=== PATIENT | female | born 1990 | race Caucasian/White ===

== ENCOUNTER 2017-07-03 08:21 | Day surgery (SDC) | payer BC ==
[2017-07-03 09:23] LABS: Hematocrit 46.4 % (37.0-47.0); Hemoglobin 15.8 gm/dL (12.5-16.0); Mean Cell Volume 86.6 fl (78-100); Mean Corpuscular Hemoglobin 29.5 pg (27-31); Mean Corpuscular Hgb Conc 34.1 g/dl (32-36); Mean Platelet Volume 9.4 fl (6.0-9.5); Neutrophil # 6.8 K/mm3 (1.3-6.0); Neutrophil % 76.4 % (42-75.0); Platelet Count 233 K/mm3 (150-450); Red Blood Count 5.36 M/mm3 (4.2-5.4); Red Cell Distribution Width 12.6 % (11.5-14.0); White Blood Count 8.9 K/mm3 (4.0-10.5)
[2017-07-03 09:24] LABS: Urine Bilirubin Negative (NEGATIVE); Urine Blood Negative /ul (NEGATIVE); Urine Ketone Negative (NEGATIVE); Urine Nitrite Negative (NEGATIVE); Urine Protein Negative (NEGATIVE); Urine Urobilinogen Normal (NORMAL)
[2017-07-03 09:34] LABS: Urine Appearance Slightly Cloudy; Urine Bacteria 2+; Urine Color Dark Yellow; Urine RBC 0-5 /hpf (0-5); Urine WBC 0-5 /hpf (0-5)
[2017-07-03] MEDS ORDERED: DIATRIZOATE MEGLUMINE, SODIUM 30 ML BTL PO ONE (09:42)
[2017-07-03] MEDS ORDERED: DIATRIZOATE MEGLUMINE, SODIUM 30 ML BTL ONE (09:44)
[2017-07-03 09:47] LABS: Albumin * 3.8 gm/dl (3.4-5.0); Anion Gap 12.9 mmol/L (6.8-13.8); BUN/Creatinine Ratio 13.6 (9.0-21.6); Bilirubin, Total 0.7 mg/dL (0.0-1.1); Ca. Corrected For Albumin 8.6 mg/dL (8.4-10.2); Calcium * 8.8 mg/dL (7.9-10.9); Carbon Dioxide 27.9 mmol/L (24-32.6); Potassium 3.8 mmol/L (3.4-4.6); Total Protein 8.2 gm/dL (6.2-8.2)
[2017-07-03] MEDS ORDERED: ONDANSETRON HCL/PF 2 MG/ML VIAL IV ONE (10:13)
[2017-07-03] MEDS ORDERED: NORMAL SALINE 1,000 ML IV ONE ×2 (10:13→11:25)
[2017-07-03] MEDS ORDERED: ONDANSETRON HCL/PF 2 MG/ML VIAL ONE (10:16)
--- NOTE | 2017-07-03 13:10 | ERNOTE ---
Abdominal HPI - General Chief Complaint: Abdominal Pain Time Seen by Provider: 07/03/17 08:44 Source: patient, family Exam Limitations: no limitations - Immun/Allergies/Home Medications Immunizatons: IMMUNIZATION HX Immunizations Up to Date Yes History of Influenza Vaccine Yes Allergies/Adverse Reactions: Allergies cefaclor [From Ceclor] Allergy (Verified 07/03/17 08:46) Hives Home Medications: HOME MEDICATIONS NK [No Home Medication] 07/03/17 [Last Taken Unknown] - History of Present Illness Narrative: Patient presents with right lower quadrant abdominal pain ongoing for perhaps past 24 hours. Patient's sister is a nurse with [employer] [facility] [employer] [facility] [employer] and states that 's exactly how her appendix pain started to evolve so she came in to be evaluated Timing: constant, getting worse Quality: moderate Activities at Onset: none Associated Symptoms: Present: denies symptoms Prior Abdominal Problems: Present: none Review of Systems - Review of Systems Constitutional: Present: See HPI EYE: Present: no symptoms reported ENT: Present: no symptoms reported Respiratory: Present: no symptoms reported Cardiology: Present: no symptoms reported Gastrointestinal/Abdominal: Present: See HPI, abdominal pain Genitourinary: Present: no symptoms reported Musculoskeletal: Present: no symptoms reported Skin: Present: no symptoms reported Neurological: Present: no symptoms reported Endocrine: Present: no symptoms reported Hematologic/Lymphatic: Present: no symptoms reported Psych: Present: no symptoms reported - Patient's Past Medical History Patient History - Medical: No pertinent hx Patient History - Cardiac/Respiratory: No pertinent hx Patient History - Cancer: No Hx of Cancer Patient History - Surgical Procedures: No surgical history Patient History - Other: None LMP (Calendar): 05/21/17 - Social History Living Situations: home Psych History: No pertinent hx Smoking Status: Never smoker Alcohol Use: occasionally Drug Use: none - Immunizations Immunizations Up to Date: Yes History of Influenza Vaccine: Yes Physical Exam - Physical Exam General Appearance: Present: wd/wn, alert, moderate distress Head Exam: Present: normal inspection, no evidence of injury Eye Exam: Normal inspection: bilateral, PERRL: bilateral Ears, Nose, Throat: Present: normal ENT inspection, H, normal pharynx Neck: Present: normal inspection, nontender Respiratory: Present: no respiratory distress, normal breath sounds, no accessory muscle use, chest nontender, lungs clear Cardiovascular/Chest: Present: regular rate, rhythm, no murmur, normal peripheral pulses Gastrointestinal/Abdominal: Present: normal bowel sounds, nondistended, soft, no organomegaly, tenderness, McBurney sign - equivocal, Obturator sign - equivocal Rectal Exam: Present: deferred Back Exam: Present: normal inspection, normal range of motion Extremity Exam: Present: normal inspection, non-tender, no edema, normal range of motion Neurological Exam: Present: alert, oriented, normal mood/affect Skin Exam: Present: normal color, warm/dry Lymphatic Exam: Present: no adenopathy ED Progress - Results and Orders Patient's Lab Results:: I have reviewed the patient's lab results. - Vital Signs Patient's Vital Signs:: I have reviewed the patient's vital signs. Vital Signs: Vital Signs 07/03/17 07/03/17 07/03/17 08:33 09:14 09:37 Temperature 36.7 C Pulse Rate 114 H 100 96 Respiratory 14 14 14 Rate Blood Pressure 133/96 127/84 127/79 O2 Sat by Pulse 97 98 97 Oximetry 07/03/17 07/03/17 07/03/17 10:03 10:33 11:20 Temperature Pulse Rate 89 98 123 H Respiratory 16 20 Rate Blood Pressure 145/82 120/63 142/79 O2 Sat by Pulse 98 100 100 Oximetry 07/03/17 07/03/17 11:37 12:38 Temperature Pulse Rate 110 H 107 H Respiratory 22 H 17 Rate Blood Pressure 133/85 132/84 O2 Sat by Pulse 99 98 Oximetry - CT/Ultrasound CT/Ultrasound Narrative: CT of the abdomen and pelvis was reviewed by me and a consult with Dr. England, our on-call surgeon, was made and he will see the patient in the emergency department. - Progress/Reassessment Chief Complaint: Abdominal Pain Plan - Plan Plan: The surgeon will come and examine the patient here in emergency department and make a final determination as to whether surgery is typical at this juncture or not. Patient will be taken to the operating room for an appendectomy. Departure Clinical Impression: Abdominal pain Qualifiers: Abdominal location: right lower quadrant Qualified Code(s): R10.31 - Right lower quadrant pain Appendicitis Qualifiers: Appendicitis type: acute appendicitis Acute appendicitis type: other Qualified Code(s): K35.89 - Other acute appendicitis - Departure Disposition: [facility] Condition: Fair
[2017-07-03] MEDS ORDERED: LEVOFLOXACIN/D5W 750 MG/150 ML BAG IV ONE (14:28)
[2017-07-03] MEDS ORDERED: RINGER'S SOLUTION,LACTATED 1,000 ML IV PRN (14:29)
--- NOTE | 2017-07-03 14:37 | HP ---
Chief Complaint - Chief Complaint Date of Service: 07/03/17 Time of Service: 14:30 Chief Complaint: abdominal pain History of Present Illness: Woke up with abdominal pain at 1AM. Vomited. Pain has persisted. CT scan suggests early appendicitis - Patient's Past Medical History Patient History - Medical: No pertinent hx Patient History - Cardiac/Respiratory: No pertinent hx Patient History - Cancer: No Hx of Cancer Patient History - Surgical Procedures: No surgical history Patient History - Other: None LMP (Calendar): 05/21/17 - Family History Family History:: no untoward family reactions to anesthesia, no family history of clotting disorders - Social History Living Situations: home Psych History: No pertinent hx Smoking Status: Never smoker Alcohol Use: occasionally Drug Use: none - Immunizations Immunizations Up to Date: Yes History of Influenza Vaccine: Yes Review Of Systems (GEN) - Review of Systems Generalized/Overall Review: Absent: Chills, Fever EENTM: Present: No Symptoms Reported Respiratory: Present: No Symptoms Reported Cardiac: Present: No Symptoms Reported Abdominal: Present: Abdominal Pain, Diarrhea Genitourinary: Present: No Symptoms Reported Musculoskeletal: Present: No Symptoms Reported Neurological: Present: No Symptoms Reported Skin: Present: No Symptoms Reported Misc: All systems neg except as marked Immunizations: IMMUNIZATION HX Immunizations Up to Date Yes History of Influenza Vaccine Yes Allergies/Adverse Reactions: Allergies Allergy/AdvReac Type Severity Reaction Status Date / Time cefaclor [From [facility]] Allergy Hives Verified 07/03/17 08:46 Home Medications: HOME MEDICATIONS NK [No Home Medication] 07/03/17 [Last Taken Unknown] Exam - Exam Vital Signs: Vital Signs - Last Taken Temp 36.7 C 07/03/17 08:33 Pulse 115 H 07/03/17 14:21 Resp 18 07/03/17 14:21 BP 151/80 07/03/17 14:21 Pulse Ox 99 07/03/17 14:21 Constitutional: Present: Alert, Oriented x3, Cooperative, Mild distress ENT Exam: Present: normal ENT inspection, other - coated tomgue Eye Exam: bilateral eye: normal inspection Neck: Present: full range of motion, normal inspection Breasts: Present: Exam deferred Respiratory: Present: normal breath sounds, no respiratory distress Cardiovascular/Chest: Present: regular rate, rhythm Peripheral Pulses: radial (R): 4+, radial (L): 4+ Abdomen: Present: other - scaphoid, tympanitic with mild percussion tenderness RLQ. Tender deep and worse with release. NO guarding /Rectal: Present: Exam deferred Extremity: Present: normal range of motion, normal inspection, no pedal edema, no calf tenderness Skin Exam: Present: warm/dry, pallor Neurologic: Present: healthcare science specialist II-XII nml as tested, normal cerebellar test, no motor/ sensory deficits Appearance: Present: appropriate appearance, appropriate insight, neat, no memory impairment Eye contact: Present: cooperative, good eye contact, normal speech Thoughts: Present: normal thought pattern Diagnostic Studies: Abnormal Lab Results 07/03/17 07/03/17 Range/Units 09:09 09:15 Immature Gran # (Auto) 0.04 H (0.000-0.0310) K/mm3 Neutrophils % 76.4 H (42-75.0) % Lymphocytes % 15.6 L (20-51) % Neutrophils # 6.8 H (1.3-6.0) K/mm3 Lymphocytes # 1.4 L (1.5-3.5) k/mm3 Ur Epithelial Cells 10-25 H (0-5) /hpf Urine Bacteria 2+ H (NONE) Laboratory Results WBC 8.9 K/mm3 (4.0-10.5) 07/03/17 09:15 RBC 5.36 M/mm3 (4.2-5.4) 07/03/17 09:15 Hgb 15.8 gm/dL (12.5-16.0) 07/03/17 09:15 Hct 46.4 % (37.0-47.0) 07/03/17 09:15 MCV 86.6 fl (78-100) 07/03/17 09:15 MCH 29.5 pg (27-31) 07/03/17 09:15 MCHC 34.1 g/dl (32-36) 07/03/17 09:15 RDW 12.6 % (11.5-14.0) 07/03/17 09:15 Plt Count 233 K/mm3 (150-450) 07/03/17 09:15 MPV 9.4 fl (6.0-9.5) 07/03/17 09:15 Immature Gran % (Auto) 0.40 % (0.001-0.429) 07/03/17 09:15 Immature Gran # (Auto) 0.04 K/mm3 (0.000-0.0310) H 07/03/17 09:15 Neutrophils % 76.4 % (42-75.0) H 07/03/17 09:15 Lymphocytes % 15.6 % (20-51) L 07/03/17 09:15 Monocytes % 6.8 % (0.0-9) 07/03/17 09:15 Eosinophils % 0.4 % (0.0-3.0) 07/03/17 09:15 Basophils % 0.4 % (0.0-1.0) 07/03/17 09:15 Nucleated RBC % 0.0 k/mm3 (0-1) 07/03/17 09:15 Neutrophils # 6.8 K/mm3 (1.3-6.0) H 07/03/17 09:15 Lymphocytes # 1.4 k/mm3 (1.5-3.5) L 07/03/17 09:15 Monocytes # 0.6 k/mm3 (0.0-1.0) 07/03/17 09:15 Eosinophils # 0.0 k/mm3 (0.0-0.7) 07/03/17 09:15 Absolute Basophils 0.0 k/mm3 (0.0-0.1) 07/03/17 09:15 Sodium 138 mmol/L (132-142) 07/03/17 09:15 Plasma Sodium 138 mmol/L (130-142) 07/03/17 09:15 Potassium 3.8 mmol/L (3.4-4.6) 07/03/17 09:15 Chloride 101 mmol/L (97-106) 07/03/17 09:15 Carbon Dioxide 27.9 mmol/L (24-32.6) 07/03/17 09:15 Anion Gap 12.9 mmol/L (6.8-13.8) 07/03/17 09:15 BUN 12 mg/dL (3-23) 07/03/17 09:15 Creatinine 0.88 mg/dL (0.4-1.4) 07/03/17 09:15 Est GFR (Non-Af Amer) 83 mL/min (60-130) 07/03/17 09:15 BUN/Creatinine Ratio 13.6 (9.0-21.6) 07/03/17 09:15 Random Glucose 92 mg/dL (70-110) 07/03/17 09:15 Calcium 8.8 mg/dL (7.9-10.9) 07/03/17 09:15 Calcium Adj for Albumin 8.6 mg/dL (8.4-10.2) 07/03/17 09:15 Total Bilirubin 0.7 mg/dL (0.0-1.1) 07/03/17 09:15 AST 15 U/L (0-48) 07/03/17 09:15 ALT 22 U/L (19-67) 07/03/17 09:15 Alkaline Phosphatase 67 U/L (50-170) 07/03/17 09:15 Total Protein 8.2 gm/dL (6.2-8.2) 07/03/17 09:15 Albumin 3.8 gm/dl (3.4-5.0) 07/03/17 09:15 Lipase 155 U/L (73-393) 07/03/17 09:15 Urine Color Dark yellow 07/03/17 09:09 Urine Appearance Slightly cloudy 07/03/17 09:09 Urine pH 6.0 pH (5.0-7.0) 07/03/17 09:09 Ur Specific [place] 1.020 SP.GR. (1.005-1.010) 07/03/17 09:09 Urine Protein Negative mg/dL (NEGATIVE) 07/03/17 09:09 Urine Glucose (UA) Negative mg/dL (NEGATIVE) 07/03/17 09:09 Urine Ketones Negative mg/dL (NEGATIVE) 07/03/17 09:09 Urine Blood Negative /ul (NEGATIVE) 07/03/17 09:09 Urine Nitrate Negative (NEGATIVE) 07/03/17 09:09 Urine Bilirubin Negative mg/dl (NEGATIVE) 07/03/17 09:09 Urine Urobilinogen Normal EU/dl (NORMAL) 07/03/17 09:09 Ur Leukocyte Esterase Negative /ul (NEGATIVE) 07/03/17 09:09 Urine RBC 0-5 /hpf (0-5) 07/03/17 09:09 Urine WBC 0-5 /hpf (0-5) 07/03/17 09:09 Ur Epithelial Cells 10-25 /hpf (0-5) H 12/26/17 09:09 Urine Bacteria 2+ (NONE) H 07/03/17 09:09 Urine Culture Comments No culture indicated 07/03/17 09:09 Urine HCG, Qual Negative (NEGATIVE) 07/03/17 09:09 CT of abdomen and pelvis suggests early appendicitis Assessment/Plan - Assessment/Plan (1) Appendicitis Assessment: discussed appendicits and its treatment. Options of observation or operation explained. after an interactive discussion, her questions were answered to her apparent satisfaction and informed consent obtained for appendectomy chlorhexidine wipes, SCD's, IV Levaquin (cephalosporin allergy) Problem: Acute Qualifiers: Appendicitis type: acute appendicitis Acute appendicitis type: other Qualified Code(s): K35.89 - Other acute appendicitis
[2017-07-03] MEDS ORDERED: RINGER'S SOLUTION,LACTATED 1,000 ML IV ONE ×2 (15:00→16:05)
[2017-07-03] MEDS ORDERED: BUPIVACAINE HCL 50 ML VIAL IJ ONE ×2 (15:50)
[2017-07-03] MEDS ORDERED: MUPIROCIN 22 APPL TUBE TP ONE (15:55)
[2017-07-03] MEDS ORDERED: PROMETHAZINE HCL 12.5 MG in DEXTROSE 5 % IN WATER 50 ML IV PRN ×2 (16:10)
[2017-07-03] MEDS ORDERED: NALOXONE HCL 0.4 MG/ML VIAL IV PRN (16:10)
[2017-07-03] MEDS ORDERED: HYDROmorphone HCL 1 MG/ML DISP.SYRIN IV PRN (16:10)
[2017-07-03] MEDS ORDERED: diphenhydrAMINE HCL 50 MG/ML VIAL IV PRN (16:10)
[2017-07-03] MEDS ORDERED: MORPHINE SULFATE 2 MG/ML DISP.SYRIN IV PRN (16:12)
[2017-07-03] MEDS ORDERED: oxyCODONE HCL/ACETAMINOPHEN 1 TAB TABLET PO ONE ×2 (16:12→16:56)
[2017-07-03] MEDS ORDERED: oxyCODONE HCL/ACETAMINOPHEN 1 TAB TABLET PO PRN (16:46)
--- NOTE | 2017-07-03 16:46 | OR ---
Operative Report - Dictated Report Narrative: Date of operation 07/03/2017 Preoperative diagnosis: Acute appendicitis Postoperative diagnosis: Pathology pending Operation: Laparoscopic appendectomy Surgeon: LONNIE England MD Anesthesia: Gen. katlyn Brody CRNA Indications for procedure: The patient is a 27-year-old female who awoke at 1 AM with vomiting and developed right lower quadrant pain. She has direct tenderness in the right lower quadrant and CT scan suggests possible early acute appendicitis. Findings: Very long appendix (pathology pending) Narrative of procedure: The patient was identified preoperatively, and prior to the administration of anesthetic a multidisciplinary timeout was observed. The patient was placed supine, SCDs were applied, and 750 mg of IV Levaquin administered. General endotracheal anesthetic was administered. The patient's abdomen was prepped with Betadine solution, and a generous operating field outlined with 4 sterile towels. The remainder the patient was covered with a sterile disposable drape. A transverse infraumbilical skin incision was made, and dissection was carried along the umbilical stalk until the fascia of the linea alba was encountered. This was incised. The peritoneum was elevated and incised to allow entry into the abdomen under direct vision. A Hussan cannula was placed and the abdomen insufflated with CO2. The laparoscopic camera was introduced and the abdomen briefly explored. Those portions of the liver, stomach, gallbladder, colon, and small intestine visualized appeared normal. The uterus was tilted to the right. There was a very small amount of clear free fluid in the pelvis. The appendix was not immediately visible. Next under direct vision, 2 additional working ports were inserted through separate skin incisions, one in the suprapubic area one in the left lower quadrant. The apex of the cecum was retracted cephalad and the base of the appendix identified. The appendix was then traced distally and the tip was grasped and elevated. The appendix was very long but outwardly appeared relatively normal. The appendix and mesoappendix were then transected with a single application of a laparoscopic MOISES stapling device. The stump of the appendix was seen to be hemostatic and gas and liquid tight. The mesoappendix appeared hemostatic. The appendix was then placed in an Endobag and parked in the right lower quadrant. The pelvis was then briefly explored with no additional pathology noted. The small working ports were then withdrawn under direct vision to ensure entry site hemostasis. The appendix was removed in conjunction with the Hussan cannula. The pneumoperitoneum was allowed to escape, and after receiving a correct sponge needle and instrument count attention was turned to closing the abdomen. The fascia and peritoneum at the umbilicus were approximated with interrupted sutures of #1 Vicryl. Subcutaneous space at the umbilicus was obliterated with a single suture of 3-0 chromic. Skin incisions were approximated with interrupted vertical mattress sutures of 4-0 nylon. The operative sites were washed and dried. Dressings of Bactroban ointment and large Band-Aids were applied to the small port sites. The umbilical incision was dressed with Bactroban ointment, 2 x 2, large Band-Aid, and Medipore tape. The operative procedure was terminated at this point. There was no measurable blood loss. 0.5% Marcaine with epinephrine was used for local anesthetic infiltration area the appendix was submitted to pathology. The patient tolerated the anesthetic and procedure well without complication and was transferred to the recovery room awake, extubated, and in stable condition. Reviewed and electronically signed
--- NOTE | 2017-07-03 18:18 | DS ---
(1) Appendicitis Problem: Acute Qualifiers: Appendicitis type: acute appendicitis Acute appendicitis type: other Qualified Code(s): K35.89 - Other acute appendicitis Description of Stay: She underwent uneventful laparoscopic appendectomy. The appendix was outwardly groslly normal, there was a small amount of clear fluid in the pelvis with no other obvious pathology. Chlorhexidine wipes, SCD's, IV Levaquin due to cephalosporin allergy. VS remained normal, tolerated liquids, was up independently and dressings remained dry. Desired discharge. Home, instructions given, Rx Percocet, phone #'s for questions or concerns. Will arrange to see her local physician for suture removal in 7 days. Procedures Performed: see notes below - laparoscopic appendectomy Discharge Disposition: Home self care Disposition: Home self-care Condition: Good Discharge Activity: Activity as tolerated, No Lifting Discharge Diet: General/regular food Problem Oriented Discharge Instructions to Patient/Family: Laparoscopic Appendectomy, Adult, Care After, Rrzi-or-Ovyz Complete Home Medications List: Complete Home Medication List: NK [No Home Medication] 07/03/17
[2017-07-03 18:38] VITALS: BP 146/82
== END 2017-07-03 14:11 | disposition home or self-care (01) ==
LOC: ER 08:21 → AMB 14:10 → MS 16:47 → UNDOADMOB 16:47
PROVIDERS: ATTEND Surgery
PROC: 0DTJ4ZZ Resection of Appendix, Percutaneous Endoscopic Approach (ICD-10-PCS; principal; 2017-07-03 14:30)
DX: K35.89 Other acute appendicitis (principal); Z68.23 Body mass index [BMI] 23.0-23.9, adult